=== PATIENT | female | born 1940 | race Caucasian/White ===

== ENCOUNTER → 2018-11-22 | Outpatient (CLI) | payer MEDICARE | END | disposition home or self-care (01) | LOC: LABWHC1 16:57 | PROVIDERS: ATTEND Physical Medicine & Rehabilitation | DX: Z01.812 Encounter for preprocedural laboratory examination (principal); N28.9 Disorder of kidney and ureter, unspecified | CPT/HCPCS: 36415; 82565; 84520 ==